=== PATIENT | male | born 1970 | race Caucasian/White ===

== ENCOUNTER 2022-03-26 09:28 | Emergency (ER) | payer OTHER, SELFPAY ==
[2022-03-26 10:17] VITALS: BP 132/76; PULSE 54; RESP 16; TEMP 36.6; O2SAT 99; BMI 25.1
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
== END 2022-03-26 11:40 | disposition home or self-care (01) ==
PROVIDERS: Emergency Provider Emergency Medicine
DX: S46.212A Strain of muscle, fascia and tendon of other parts of biceps, left arm, initial encounter (principal); X50.1XXA Overexertion from prolonged static or awkward postures, initial encounter; X58.XXXA Exposure to other specified factors, initial encounter
CPT/HCPCS: 73221; 99281; 99283

== ENCOUNTER → 2022-03-26 11:42 | Outpatient (CLI) | payer OTHER, SELFPAY ==
--- NOTE | 2022-03-26 11:43 | DI.MRI.S_ITS ---
PROCEDURE: MR ELBOW LT W CON INDICATIONS: Evaluate and assess torn distal left bicep muscle TECHNIQUE: Noncontrast coronal proton density fast spin echo and T2 fast spin echo with fat saturation, axial and sagittal T1 spin echo and T2 fast spin echo with fat saturation through the elbow. COMPARISON: None. FINDINGS: Image quality: Excellent. Lateral structures: The lateral ulnar collateral ligament and radial collateral ligament both appear intact. The overlying common extensor tendon also appears normal. Medial structures: Proximal left ulnar collateral ligament appears attenuated at its medial epicondylar insertion. The overlying common flexor tendon also appears attenuated with heterogeneous intrasubstance T2 hyperintense signal. The ulnar nerve appears normal in size and signal within the cubital tunnel. Anterior structures: There is full-thickness rupture of distal biceps tendon at its proximal radial insertion with up to 2.5 cm proximal retraction of torn tendon fibers and moderate to large amount of surrounding fluid . The brachialis tendon is intact. Nonvisualization of lacertus fibrosus is seen. The median and radial neurovascular bundles appear normal; no focal muscle atrophy to suggest nerve impingement. Posterior structures: The conjoint triceps tendon from the long and lateral heads appears intact. The medial head of the triceps tendon also appears normal, with direct muscle insertion onto the olecranon. No olecranon bursal fluid. Bone and cartilage: No bone marrow contusions or fractures. No osteochondral injuries. IMPRESSION: 1. Full-thickness rupture of distal biceps tendon at its insertion on proximal radius with up to 2.5 cm proximal retraction of torn tendon fibers and moderate to large amount of surrounding fluid. Distal brachialis tendon is intact. 2. Nonvisualization of intact lacertus fibrosus suggestive of ruptured lacertus. 3. Suggestion of mild medial epicondylitis with tendinosis and low-grade partial-thickness tear involving common flexor tendon origin and sprain/low-grade partial-thickness tear involving underlying ulnar collateral ligament. 4. No marrow edema. No fracture or dislocation. Dictated by: Nicolas Ramos M.D. on 03/26/2022 at 16:16 Approved by: Nicolas Ramos M.D. on 03/26/2022 at 16:26
== END ==
PROVIDERS: PCP Family Medicine; Referring Provider Orthopaedic Surgery; Visit Provider Family Medicine
DX: S46.212A Strain of muscle, fascia and tendon of other parts of biceps, left arm, initial encounter (principal); X58.XXXA Exposure to other specified factors, initial encounter
CPT/HCPCS: 73221

== ENCOUNTER 2022-04-03 10:55 | Day surgery (SDC) | payer OTHER, SELFPAY ==
[2022-03-28 09:45] VITALS: BMI 25.1
[2022-04-03] VITALS (9 sets, daily range): BP systolic 112–130; BP diastolic 62–75; PULSE 54–77; RESP 10–15; TEMP 36.4–36.7; O2SAT 96–99; BMI 25.1
[2022-04-03 11:29] LABS: COVID19 -Nasal RAPID Negative (Negative)
[2022-04-03] MEDS: LACTATED RINGERS 1,000 ML 42 ML IV (11:34)
--- NOTE | 2022-04-03 13:28 | PM.PREOP ---
Pre-operative Note COVID-19 COVID-19 status: Negative Result date/Date tested (Pos, Neg/Pending): 04/03/22 Interval Note History & Physical reviewed/Exam performed by Physician: Yes Changes to H&P: No
[2022-04-03] MEDS: CEFAZOLIN 2 GM/20 ML SYRINGE IV (14:24)
--- NOTE | 2022-04-03 14:33 | SUR.OPER ---
Supine on padded OR bed, head on pillow, right arm secured on padded arm board at <90 degrees abduction, legs uncrossed, safety belt at thigh, tape over blanket over lower legs. Left arm on arm table draped into field. Directed and approved by surgeon
[2022-04-03] MEDS: BUPIVACAINE 0.5% (PF) 30 ML, EPINEPHrine 0.15 MG INJ (14:40)
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
[2022-04-03] MEDS: OXYCODONE IR 5 MG TABLET PO (15:55)
[2022-04-03] MEDS: HYDROMORPHONE 2 MG INJ IV ×2 (16:05→16:12)
[2022-04-03] MEDS: ACETAMINOPHEN 325 MG TABLET 650 MG PO (16:05)
== END 2022-04-03 17:20 | disposition home or self-care (01) ==
PROVIDERS: PCP Family Medicine; Referring Provider Orthopaedic Surgery; Visit Provider Orthopaedic Surgery
PROC: (CPT 24341; principal; 2022-04-03 13:45)
DX: S46.212A Strain of muscle, fascia and tendon of other parts of biceps, left arm, initial encounter (principal); X50.0XXA Overexertion from strenuous movement or load, initial encounter
CPT/HCPCS: 24341; 87635; C9803; J0171; J0690; J1100; J1170; J2250; J2405; J2704; J3010